=== PATIENT | female | born 1965 | race African-American/Black ===

== ENCOUNTER → 2016-11-20 | Outpatient (CLI) | payer MEDICARE, OTHER ==
--- NOTE | 2016-11-21 06:45 | MR ---
EXAMINATION TYPE: MR shoulder LT wo con DATE OF EXAM: 11/20/2016 COMPARISON: NONE HISTORY: Pain in left shoulder per order. Left shoulder and arm pain with difficulty raising overhead for one month per patient. TECHNIQUE: Multiplanar, multisequence imaging of the left shoulder is performed without contrast. FINDINGS: Exam is noted suboptimal secondary to patient's large body habitus. Rotator Cuff: Supraspinatus tendon is intact and within normal limits. There is increased signal seen in distal infraspinatus tendon . No discrete tear is evident. Subscapularis tendon is grossly intact . Acromioclavicular Joint: The acromioclavicular joint is maintained. Distal acromion morphology is unr emarkable. Glenohumeral Joint: Joint space loss is present. There are small to moderate glenohumeral joint effus ion. No significant spurring is seen. Labrum: The labrum appears grossly intact given limitation of non-arthrogram study. Biceps Tendon: The long head of biceps is in normal location within bicipital groove. Bone marrow signal: Heterogeneity of bone marrow signal intensity consistent with red marrow reconver ilya is present. No suspicious edema is seen. Other: No additional significant abnormality is appreciated. IMPRESSION: No full-thickness rotator cuff or labral tear. Mild tendinosis infraspinatus tendon the a rticular surface. Glenohumeral joint arthropathy as detailed above.
== END | disposition home or self-care (01) ==
LOC: RADMRIMAIN 21:25
PROVIDERS: ATTEND Internal Medicine
DX: M75.82 Other shoulder lesions, left shoulder (principal); M12.9 Arthropathy, unspecified